=== PATIENT | female | born 1980 | race Caucasian/White ===

== ENCOUNTER 2017-07-26 14:27 | Emergency (ER) | payer MEDICAID ==
[2017-07-26 15:15] LABS: BASOPHILS 0.1 % (0-2); EOSINOPHILS 0.1 % (0-7); HEMATOCRIT 47.3 % (36.0-48.0); HEMOGLOBIN 16.4 g/dL (12-16); IMMATURE GRANULOCYTES 0.3 % (0-5); LYMPHOCYTES 5.1 % (15-50); MCH 33.3 pg (26.0-34.0); MCHC 34.7 g/dL (31.0-37.0); MCV 96.1 fL (80.0-100.0); MEAN PLATELET VOLUME 10.4 fL (7.4-10.4); MONOCYTES 4.6 % (2-11); NEUTROPHILS 89.8 % (40-80); PLATELET COUNT 143 10x3/uL (130-400); RBC 4.92 10x6/uL (4.00-5.40); RDW 12.5 % (11.5-14.5); WBC 11.8 10x3/uL (4.8-10.8)
[2017-07-26 15:23] LABS: ALBUMIN 3.6 g/dL (3.4-5.0); ALKALINE PHOSPHATASE 91 U/L (46-116); ALT (SGPT) 34 U/L (10-68); BILIRUBIN - TOTAL 0.91 mg/dL (0.2-1.3); CALC OSMOLALITY 272 mosm/kg (275-300); CALCIUM 9.1 mg/dL (8.5-10.1); CARBON DIOXIDE 27.5 mmol/L (21.0-32.0); CHLORIDE - SERUM 99 mmol/L (98-107); CREATININE - SERUM 0.9 mg/dL (0.6-1.3); GLUCOSE 82 mg/dL (74-106); POTASSIUM - SERUM 3.6 mmol/L (3.5-5.1); PROTEIN - SERUM 7.1 g/dL (6.4-8.2); SODIUM 136 mmol/L (136-145); UREA NITROGEN 19 mg/dL (7-18); eGFR NON AFRICAN AMERICAN 75 mL/min (90-120)
[2017-07-26 16:01] LABS: APPEARANCE HAZY (CLEAR); COLOR YELLOW (YELLOW); GLUCOSE NEGATIVE (NEGATIVE); NITRITE NEGATIVE (NEGATIVE); PROTEIN NEGATIVE (NEGATIVE)
[2017-07-26 16:02] LABS: BILIRUBIN 1+ (NEGATIVE); KETONE NEGATIVE (NEGATIVE); UROBILINOGEN NORMAL (NORMAL)
[2017-07-26 16:05] LABS: BACTERIA MODERATE /hpf (NONE SEEN); RED CELLS - URINE OCC /hpf (0-5); WHITE CELLS - URINE 0-5 /hpf (0-5); YEAST <1+ /hpf (NONE SEEN)
== END 2017-07-26 17:00 | disposition home or self-care (01) ==
LOC: D.ER 14:27
PROVIDERS: Emergency Medicine
DX: R10.9 Unspecified abdominal pain (principal); R11.10 Vomiting, unspecified; E86.0 Dehydration; N76.0 Acute vaginitis; F17.200 Nicotine dependence, unspecified, uncomplicated

== ENCOUNTER 2017-11-18 20:41 | Emergency (ER) | payer MEDICAID, BC | END 2017-11-18 22:42 | disposition home or self-care (01) | LOC: D.ER 20:41 | DX: R10.2 Pelvic and perineal pain (principal); R22.2 Localized swelling, mass and lump, trunk; B37.9 Candidiasis, unspecified ==

== ENCOUNTER 2017-11-23 21:29 | Emergency (ER) | payer MEDICAID, BC | END 2017-11-23 23:30 | disposition left against medical advice (07) | LOC: D.ER 21:29 | DX: R53.1 Weakness (principal) ==

== ENCOUNTER 2018-03-02 08:08 | Emergency (ER) | payer MEDICAID, BC ==
[2018-03-02 08:38] LABS: APPEARANCE CLEAR (CLEAR); BILIRUBIN NEGATIVE (NEGATIVE); COLOR YELLOW (YELLOW); GLUCOSE NEGATIVE (NEGATIVE); KETONE NEGATIVE (NEGATIVE); NITRITE NEGATIVE (NEGATIVE); PROTEIN NEGATIVE (NEGATIVE); UROBILINOGEN NORMAL (NORMAL)
[2018-03-03 20:09] LABS: CHLAMYDIA TRACHOMATIS, NAA Negative (Negative)
== END 2018-03-02 10:35 | disposition home or self-care (01) ==
LOC: D.ER 08:08
PROVIDERS: Family Medicine
DX: N76.0 Acute vaginitis (principal)

== ENCOUNTER 2018-05-21 01:15 | Emergency (ER) | payer MEDICAID, BC ==
[~2018-05-21] VITALS: Ht 170.2 cm; Wt 84.5 kg
[2018-05-21 01:36] VITALS: Ht 170.2 cm; Wt 84.5 kg
[2018-05-21] MEDS ORDERED: ADDERALL 30 MG30 MG PO (01:39)
[2018-05-21] MEDS ORDERED: KLONOPIN0.5 MG PO (01:39)
[2018-05-21] MEDS ORDERED: DEPO-PROVER150 MG/ML IM (01:42)
[2018-05-21] MEDS ORDERED: CLEOCIN HCL300 MG PO (02:46)
[2018-05-21] MEDS ORDERED: TORADOL10 MG PO (02:48)
[2018-05-21 03:02] VITALS: BP 112/67
[2018-06-15] MEDS ORDERED: CLEOCIN HCL150 MG PO (12:57)
[2018-06-15] MEDS ORDERED: CLARITIN 10 MG10 MG PO (12:57)
[2018-06-16 10:00] VITALS: Ht 170.2 cm; Wt 84.5 kg
== END 2018-05-21 03:02 | disposition home or self-care (01) ==
LOC: D.ER 01:15
DX: J02.0 Streptococcal pharyngitis (principal); Z85.41 Personal history of malignant neoplasm of cervix uteri; M79.1 Myalgia

== ENCOUNTER 2018-06-16 07:12 | Day surgery (SDC) | payer MEDICAID ==
[2018-06-15 13:20] LABS: BASOPHILS 0.2 % (0-2); EOSINOPHILS 2.9 % (0-7); HEMATOCRIT 41.7 % (36.0-48.0); HEMOGLOBIN 14.2 g/dL (12-16); IMMATURE GRANULOCYTES 0.3 % (0-5); LYMPHOCYTES 26.1 % (15-50); MCH 32.6 pg (26.0-34.0); MCHC 34.1 g/dL (31.0-37.0); MCV 95.6 fL (80.0-100.0); MEAN PLATELET VOLUME 10.1 fL (7.4-10.4); MONOCYTES 6.2 % (2-11); NEUTROPHILS 64.3 % (40-80); RBC 4.36 10x6/uL (4.00-5.40); RDW 12.8 % (11.5-14.5); WBC 12.3 10x3/uL (4.8-10.8)
[2018-06-15 13:23] LABS: PLATELET COUNT 209 10x3/uL (130-400)
[~2018-06-16] VITALS: Ht 170.2 cm; Wt 90.3 kg
--- NOTE | ~2018-06-16 | OP ---
PATIENT NAME: LETY WALKER MEDICAL RECORD: [id number] :82 LOCATION:D.OPS ADMISSION DATE: SURGEON: PARRISH MEDINA MD DATE OF OPERATION: 06/16/2018 PREOPERATIVE DIAGNOSES: 1. Pelvic pain. 2. Vaginal wall mass. 3. Tissue abnormality posterior fornix status post vaginal delivery. POSTOPERATIVE DIAGNOSES: 1. Pelvic pain. 2. Vaginal wall mass. 3. Tissue abnormality posterior fornix status post vaginal delivery. 4. Pelvic adhesions. PROCEDURES: 1. Diagnostic laparoscopy. 2. Lysis of adhesions. 3. Removal of vaginal wall masses. 4. Revision of posterior fourchette. ATTENDING: Parrish Medina MD ULTRA SOUND TECHNICIAN: William Herrera ANESTHESIOLOGIST: Adam Gibbons MD ANESTHESIA: General anesthetic with endotracheal intubation. FINDINGS: At the time of laparoscopy, adhesions in the midline were encountered of the omentum. Tubes and ovaries were unremarkable. Uterus was slightly enlarged and boggy. No active endometriosis was observed in the pelvis. What was visualized of the abdominal anatomy was unremarkable. At the time of vaginal portion of this procedure, two separate indurated regions of 1 to 1.5 cm across encountered in the left posterior wall of the vagina 1-2 cm above the hymenal ring. A bridge of tissue crossing posterior fourchette with some inflammation. SPECIMENS: 1. Vaginal biopsy times 2. 2. Skin of posterior fourchette. SPECIMENS DISPOSITION: 1 and 2 to pathology. ESTIMATED BLOOD LOSS: Less than or equal to 75 cc. FLUIDS: 1300 cc lactated Ringer's. URINE OUTPUT: Quantity sufficient void prior to this procedure. COMPLICATIONS: None. DRAINS: None. OPERATIVE REPORT [id number] LETY WALKER INDICATIONS: The patient is a 37-year-old female with persistent dyspareunia and pelvic pain. The patient has tried conservative therapy without result. On examination, she has point tenderness over 2 nodular regions inside the vaginal vault above the hymenal ring on the left side. The patient also has a bridge of tissue that causes her pain with intercourse. DESCRIPTION OF PROCEDURE: After informed consent was assured, the patient was taken to the operating room where anesthetic was obtained without difficulty. The patient was now prepped and draped in the usual sterile fashion. An incision was made at the umbilicus to accommodate a 5-mm bladeless trocar. This was inserted without difficulty and pneumoperitoneum developed. Accessory ports then placed 2 fingerbreadths above the symphysis in the midline. With the patient in steep Trendelenburg position, the bowel was swept free of the pelvis. Adhesions were encountered in the midline above the level of the uterine fundus. Using a monopolar hook, these adhesions were taken down. After this had been performed, pelvis was surveyed with the above findings and trocars were removed after release of pneumoperitoneum. Attention was now directed to the vagina. Legs were positioned and the nodules palpated. The superior nodule was grasped with an Allis clamp and an elliptical incision made around this and it was removed. Second nodule was encountered and it was removed in like fashion. The posterior fourchette was inspected. The bridge of tissue was noted to have some inflammation. It appears to have some inflammation. An inverted V incision was made above this incorporated in the posterior fourchette and carried down to the perineal body. After the skin of the posterior fourchette was removed, a chromic stitch was now used to reapproximate the defect. This close starts in the vaginal floor, moves forward to the introitus and after performing a crown stitch was carried down to the inferior aspect of the perineal incision and brought up. A 4-0 chromic stitch was used to approximate any minor defects in the vaginal floor. A 3-0 chromic was used to close the elliptical incision created to remove vaginal masses. Adequate hemostasis was obtained and estradiol cream was applied to all sites. Sponge, lap, needle count was correct times 2. At the close of the procedure, 5 mL of 0.25% Marcaine without epinephrine was injected into the vaginal floor. TRANSINT:[id number] Voice Confirmation ID: [id number] DOCUMENT ID: [id number] PARRISH MEDINA MD at 1627 CC: [id number] DICTATION DATE: 06/16/18 1306 TRACK SWEEPER: 06/16/[address] [facility] 06/16/18 [place] [id number]
[~2018-06-16 07:12] MED LIST: ADDERALL 30 MG30 MG PO; CLARITIN 10 MG10 MG PO; CLEOCIN HCL150 MG PO; CLEOCIN HCL300 MG PO; DEPO-PROVER150 MG/ML IM; KLONOPIN0.5 MG PO; TORADOL10 MG PO
[2018-06-16] MEDS ORDERED: ADDERALL 20 MG20 M1 PO (09:40)
[2018-06-16] MEDS ORDERED: ADDERALL 30 MG30 MG PO (09:40)
[2018-06-16 09:56] VITALS: BP 119/71; BMI 31.2
[2018-06-16 10:00] VITALS: BP 119/71; Ht 170.2 cm; Wt 90.3 kg
[2018-06-16 10:27] LABS: HCG URINE NEGATIVE (NEGATIVE)
[2018-06-16 12:08] LABS: HCG URINE NEGATIVE (NEGATIVE)
== END 2018-06-16 15:45 | disposition home or self-care (01) ==
LOC: D.OPS 07:12 → D.PAN 09:20 → D.OPS 09:20 → D.PAN 09:30 → D.OPS 15:45
PROVIDERS: Obstetrics & Gynecology
DX: N89.0 Mild vaginal dysplasia (principal); N73.6 Female pelvic peritoneal adhesions (postinfective); Z01.812 Encounter for preprocedural laboratory examination; N76.89 Other specified inflammation of vagina and vulva

== ENCOUNTER 2018-08-19 08:47 | Emergency (ER) | payer BC ==
[~2018-08-19] VITALS: Ht 170.2 cm; Wt 93.6 kg
[~2018-08-19 08:47] MED LIST changes: +ADDERALL 20 MG20 M1 PO
[2018-08-19 08:51] VITALS: Ht 170.2 cm; Wt 93.6 kg
[2018-08-19] MEDS ORDERED: FUROSEMIDE20 MG PO (08:52)
[2018-08-19] MEDS ORDERED: IBUPROFEN400 MG PO (08:54)
[2018-08-19 09:57] LABS: BASOPHILS 0.2 % (0-2); EOSINOPHILS 2.4 % (0-7); HEMATOCRIT 40.4 % (36.0-48.0); HEMOGLOBIN 13.7 g/dL (12-16); IMMATURE GRANULOCYTES 0.1 % (0-5); LYMPHOCYTES 34.3 % (15-50); MCH 32.3 pg (26.0-34.0); MCHC 33.9 g/dL (31.0-37.0); MCV 95.3 fL (80.0-100.0); MEAN PLATELET VOLUME 10.2 fL (7.4-10.4); MONOCYTES 7.9 % (2-11); NEUTROPHILS 55.1 % (40-80); PLATELET COUNT 206 10x3/uL (130-400); RBC 4.24 10x6/uL (4.00-5.40); RDW 12.7 % (11.5-14.5); WBC 8.4 10x3/uL (4.8-10.8)
[2018-08-19 10:05] LABS: APPEARANCE CLEAR (CLEAR); BILIRUBIN NEGATIVE (NEGATIVE); COLOR YELLOW (YELLOW); GLUCOSE NEGATIVE (NEGATIVE); KETONE NEGATIVE (NEGATIVE); NITRITE NEGATIVE (NEGATIVE); PROTEIN NEGATIVE (NEGATIVE); SPECIFIC GRAVITY 1.015 (1.005-1.020); UROBILINOGEN NORMAL (NORMAL)
[2018-08-19 10:06] LABS: HCG URINE NEGATIVE (NEGATIVE)
[2018-08-19 10:09] LABS: ALBUMIN 3.6 g/dL (3.4-5.0); ALKALINE PHOSPHATASE 74 U/L (46-116); ALT (SGPT) 29 U/L (10-68); BILIRUBIN - TOTAL 0.29 mg/dL (0.2-1.3); CALC OSMOLALITY 282 mosm/kg (275-300); CARBON DIOXIDE 27.5 mmol/L (21.0-32.0); CHLORIDE - SERUM 105 mmol/L (98-107); CREATININE - SERUM 0.9 mg/dL (0.6-1.3); GLUCOSE 89 mg/dL (74-106); MAGNESIUM - SERUM 2.2 mg/dL (1.8-2.4); POTASSIUM - SERUM 3.9 mmol/L (3.5-5.1); PROTEIN - SERUM 6.7 g/dL (6.4-8.2); SODIUM 141 mmol/L (136-145); UREA NITROGEN 22 mg/dL (7-18); eGFR NON AFRICAN AMERICAN 75 mL/min (90-120)
[2018-08-19] MEDS ORDERED: ULTRAM50 MG PO (11:29)
[2018-08-19 11:52] VITALS: BP 106/69
== END 2018-08-19 11:54 | disposition home or self-care (01) ==
LOC: D.ER 08:47
PROVIDERS: Emergency Medicine
DX: R60.0 Localized edema (principal); M41.9 Scoliosis, unspecified

== ENCOUNTER 2019-05-23 07:10 | Day surgery (SDC) | payer BC ==
[2019-05-20 10:07] LABS: BASOPHILS 0.2 % (0-2); EOSINOPHILS 2.1 % (0-7); HEMATOCRIT 43.5 % (36.0-48.0); HEMOGLOBIN 15.3 g/dL (12-16); IMMATURE GRANULOCYTES 0.2 % (0-5); LYMPHOCYTES 28.5 % (15-50); MCH 32.5 pg (26.0-34.0); MCHC 35.2 g/dL (31.0-37.0); MCV 92.4 fL (80.0-100.0); MEAN PLATELET VOLUME 10.2 fL (7.4-10.4); MONOCYTES 9.3 % (2-11); NEUTROPHILS 59.7 % (40-80); PLATELET COUNT 197 10x3/uL (130-400); RBC 4.71 10x6/uL (4.00-5.40); RDW 12.7 % (11.5-14.5); WBC 8.9 10x3/uL (4.8-10.8)
[2019-05-20 11:04] LABS: ANION GAP 12.1 mmol/L (8-16); CALCIUM 9.1 mg/dL (8.5-10.1); CARBON DIOXIDE 26.4 mmol/L (21.0-32.0); POTASSIUM - SERUM 3.5 mmol/L (3.5-5.1)
[~2019-05-23] VITALS: Ht 152.4 cm; Wt 100.7 kg
[~2019-05-23 07:10] MED LIST changes: +FUROSEMIDE20 MG PO; +IBUPROFEN400 MG PO; +ULTRAM50 MG PO
[2019-05-23 08:24] LABS: HCG URINE NEGATIVE (NEGATIVE)
[2019-05-23 08:34] VITALS: BP 107/57; BMI 34.8
[2019-05-23 13:06] VITALS: BP 103/53
--- NOTE | 2019-05-23 13:06 | NUR ---
RECIEVED PT FROM PACU. PT HAS L HAND PIV INFUSING LR @125. ALEGRIA DRAINING DARK YELLOW URINE. SHE IS ON 2L NC. VSS. WILL CTM
[2019-05-23 13:49] VITALS: Ht 152.4 cm; Wt 100.7 kg
--- NOTE | 2019-05-23 13:50 | NUR ---
DC ALEGRIA CATH. 25ML OF DARK YELLOW URINE DRAINED FROM BAG. ASSISTED PT TO BATHROOM. SHE WAS UNABLE TO GO. ASSISTED BACK TO BED AND WILL TRY AGAIN SHORTLY.
--- NOTE | 2019-05-23 16:06 | NUR ---
PT ABLE TO URINATE POST CATH. 100ML OF YELLOW URINE WITH LIGHT RED BLOOD. PT ALSO TOLERATING CRACKERS AND SPRITE. AND SAT 99% ON RA
--- NOTE | 2019-05-23 17:42 | NUR ---
DC PAPERS REVIEWED AND SIGNED WITH PT. MARIA D VELÁZQUEZ TO PT. IV REMOVED, CATH FULLY INTACT. ASSISTED PT TO [facility] VIA WHEELCHAIR MOTHER PRESENT.
--- NOTE | 2019-06-25 09:15 | OP ---
PATIENT NAME: LETY WALKER MEDICAL RECORD: [id number] :82 LOCATION:D[facility] ADMISSION DATE: SURGEON: GEETA MEDINA MD DATE OF OPERATION: 05/23/2019 PREOPERATIVE DIAGNOSES: 1. Dysfunctional uterine bleeding. 2. History of abnormal Pap smear. POSTOPERATIVE DIAGNOSES: 1. Dysfunctional uterine bleeding. 2. History of abnormal Pap smear. PROCEDURES: 1. Diagnostic laparoscopy. 2. Total laparoscopic hysterectomy. 3. Bilateral salpingo-oophorectomy. SURGEON: Geeta Medina MD ANESTHESIOLOGIST: Dr. Larsen ANESTHETIC: General. FINDINGS: Boggy uterus that is slightly enlarged. Both tubes and ovaries are unremarkable. No evidence of active endometriosis was seen. SPECIMEN REMOVED: Uterus with cervix and bilateral adnexa. SPECIMEN DISPOSITION: All specimens to pathology. ESTIMATED BLOOD LOSS: Less than or equal to 125 cc. FLUID: 1200 cc lactated Ringer's. URINE OUTPUT: 75 cc of clear urine. COMPLICATIONS: None. DRAINS: Johnson to gravity. INDICATIONS: The patient is a multiparous female with no future fertility desire. The patient has a history of intense cramping with her periods and heavy blood flow. The patient also has a history of abnormal Pap smears. The patient is cancer phobic and requests removal of the adnexa. Risks, benefits as well as the risk of hormone replacement therapy has been discussed with the patient. DESCRIPTION OF PROCEDURE: After informed consent was assured, the patient was taken to the operating room, anesthetic was obtained. The patient was placed in stirrups and prepped and draped in the usual sterile fashion. A uterine manipulator was placed and then attention was directed to the abdomen. Incision was made in the umbilicus to accommodate a trocar, which was inserted without difficulty. Pneumoperitoneum was now developed. Accessory ports were OPERATIVE REPORT [id number] LETY WALKER placed in the right and left lower quadrants. Bowel was swept free of the pelvis and with the patient in Trendelenburg position, uterus was manipulated to expose the right adnexa. With a grasper inserted from the left hand side of the pelvis, the tube was elevated. The infundibulopelvic ligament was compressed, coagulated, and . This dissection was carried out underneath the ovary across the round ligament and the anterior leaf of the broad ligament was opened. This dissection was carried down to the midline and developing the bladder flap pathway. Posterior leaf was dissected free and the vessels of the right side were compressed, coagulated, and at the level of the internal os. Attention was now directed to the left side. From the right tube was elevated. The left ovary's blood supply was now compressed, coagulated, and at the infundibulopelvic ligament. Dissection was carried out under the left ovary across the round ligament and again the anterior leaf of the broad ligament was opened. The bladder flap was now fully developed. The posterior leaf was opened and the vessels of the left hand side are now compressed, coagulated, and at the level of the internal os. Dissection of the uterus from the vaginal cuff began from the 9 o'clock position. This dissection was carried out from the 9 to 6 and the 9 to 12 positions. Dissection concludes from the 12-6 o'clock from the right. Uterus and adnexa were pulled into the vaginal vault. The pneumoperitoneum was maintained. The pelvis was irrigated and irrigant removed. Adequate hemostasis was seen. The patient now has a pneumoperitoneum released and the vaginal cuff was closed from below using interrupted Vicryl stitches. After close of the vaginal cuff, the pelvis again was visualized after insufflation of the abdomen and the patient in Trendelenburg position. A final look revealed adequate hemostasis. Sponge, lap, and needle counts correct times two. The trocars were removed and pneumoperitoneum has been released. All sites are closed with a subcuticular stitch. Sterile dressing applied. The patient went to the recovery room in stable condition. TRANSINT:[id number] Voice Confirmation ID: [id number] DOCUMENT ID: [id number] GEETA MEDINA MD at 0915 CC: [id number] DICTATION DATE: 06/23/19 170 PRODUCTION CLERK: 06/23/190 [facility] 05/23/19 [facility] [address] [place] [address]
== END 2019-05-23 17:57 | disposition home or self-care (01) ==
LOC: D.OPS 07:10 → D.PAN 10:00 → D.OPS 10:00 → D.PAN 10:30 → D.M3 12:47 → D.OPS 17:57
PROVIDERS: ATTEND Obstetrics & Gynecology
DX: N85.2 Hypertrophy of uterus (principal); N83.02 Follicular cyst of left ovary; N83.01 Follicular cyst of right ovary; Z01.812 Encounter for preprocedural laboratory examination

== ENCOUNTER → 2021-03-01 14:09 | Outpatient (CLI) | payer BC | END | disposition home or self-care (01) | LOC: D.RAD 14:09 | PROVIDERS: ATTEND Orthopaedic Surgery | DX: S73.102A Unspecified sprain of left hip, initial encounter (principal) ==